=== PATIENT | female | born 1965 | race Caucasian/White ===

== ENCOUNTER 2016-10-15 11:46 | Emergency (ER) | payer MEDICARE, OTHER ==
--- NOTE | 2016-10-15 13:07 | EDDOCDS ---
Physician Documentation [facility] Name: Lilian Jones Age: 51 yrs Sex: Female : 1965 Arrival Date: 10/15/2016 Time: 11:46 Bed TR7 Private MD: Steven Mtz MD Disposition: 10/15/16 13:01 Discharged to Home/Self Care. Impression: Dental caries, Cellulitis and abscess of mouth. - Condition is Stable. - Discharge Instructions: Dental Abscess, Dental Pain. - Prescriptions for Amoxicillin 500 mg Oral Capsule - take 1 capsule by ORAL route every 8 hours for 10 days; 28 tablet. Diclofenac Sodium 75 mg Oral Tablet, Delayed Release (E.C.) - take 1 tablet by ORAL route 2 times per day; 30 tablet. - Medication Reconciliation, Local Pharmacy Hours form. - Follow up: Your, Dentist; When: 2 - 3 days; Reason: Further diagnostic work-up, Recheck today's complaints, Continuance of care. - Problem is new. - Symptoms are unchanged. Historical: - Allergies: no known allergies; - Home Meds: 1. Amlodipine Oral Unknown once daily 2. hydrochlorothiazide 25 mg Oral tab 1 tab once daily 3. Glipizide Oral Unknown 2 times per day 4. venlafaxine 37.5 mg oral tab daily - PMHx: Anxiety; Diabetes - NIDDM: uncontrolled; Hypertension; Pseudo Tumor Cerebri; legally blind; - PSHx: Hysterectomy; shunt in back; - Social history: Smoking status: Patient states was never smoker of tobacco. No barriers to communication noted, The patient speaks fluent Pashto, Speaks appropriately for age. - Family history: Not pertinent. - : The pt / caregiver states he / she is not on anticoagulants. Home medication list is obtained from the patient. - Exposure Risk Screening:: None identified. 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 4 in. (162.56 cm) (R); Pain 7/10; 11:49 Body Mass Index 51.49 (136.08 kg, 162.56 cm) lr2 MDM: 12:51 Financial registration complete. lg 12:54 [facility] Payment Agreement was scanned into [employer] and attached to record. [email or web address] Signatures: Sissy Sierra, Reg Reg lg Julissa Jackson,RN RN kr3 Cb Thomas PA PA btw Negrita Blackman, Reg Reg ks16 The chart was reviewed and I authenticate all verbal orders and agree with the evaluation and treatment provided.Attachments: 12:54 [facility] Payment Agreement ks16 MTDD
--- NOTE | 2016-10-15 13:07 | EDDOCDS ---
Nurse's Notes [facility] Name: Lilian Jones Age: 51 yrs Sex: Female : 1965 Arrival Date: 10/15/2016 Time: 11:46 Bed TR7 Private MD: Steven Mtz MD Diagnosis: Dental caries;Cellulitis and abscess of mouth Presentation: 10/15 11:50 Presenting complaint: Patient states: swelling to right side of face and dental pain kr3 right back tooth since night. Presenting complaint: Patient states: took some left over Amoxicillin (875mg) times 2 doses 1 day ago. Adult Sepsis Screening: The patient does not have new or worsening altered mentation. Patient's respiratory rate is less than 22. Systolic blood pressure is greater than 100. Patient has a qSOFA score of 0- Negative Sepsis Screen. Suicide/Homicide risk assessment- the patient denies having any suicidal and/or homicidal ideations and does not present with any other emotional, behavioral or mental health complaints. Status: Patient is not a product manager financial services or dependent. Transition of care: patient was not received from another setting of care. 11:50 Acuity: MALVIN Level 4 kr3 11:50 Method Of Arrival: Walkin/Carried/Asstd kr3 Triage Assessment: 11:53 General: Appears in no apparent distress, comfortable, Behavior is cooperative. Pain: kr3 Location: right jaw Pain currently is 7 out of 10 on a pain scale. HIV screening NA for this visit Offered previously. EENT: Reports pain in mouth. Respiratory: Respiratory effort is even, unlabored. Derm: Skin is normal. 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 Amlodipine Oral Unknown once daily 2. hydrochlorothiazide 25 mg Oral tab 1 tab once daily 3. Glipizide Oral Unknown 2 times per day 4. venlafaxine 37.5 mg oral tab daily - PMHx: Anxiety; Diabetes - NIDDM: uncontrolled; Hypertension; Pseudo Tumor Cerebri; legally blind; - PSHx: Hysterectomy; shunt in back; - Social history: Smoking status: Patient states was never smoker of tobacco. No barriers to communication noted, The patient speaks fluent Cook Islander, Speaks appropriately for age. - Family history: Not pertinent. - : The pt / caregiver states he / she is not on anticoagulants. Home medication list is obtained from the patient. - Exposure Risk Screening:: None identified. Screenin:05 Screening information is obtained from the patient. Fall risk: No risks identified. kr3 Assistance ADL's: requires no assistance with activities of daily living. Abuse/DV Screen: The patient / caregiver reports he/she is: not in a situation that causes fear, pain or injury. Nutritional screening: No deficits noted. Advance Directives: Currently, there is no health care proxy. home support is adequate. Assessment: 13:05 General: Appears in no apparent distress, comfortable, Behavior is cooperative. kr3 Vital Signs: 11:49 BP 184 / 90; Pulse 86; Resp 16; Temp 97.8(T); Pulse Ox 96% on R/A; Weight 136.08 kg lr2 (R); Height 5 ft. 4 in. (162.56 cm) (R); Pain 7/10; 11:49 Body Mass Index 51.49 (136.08 kg, 162.56 cm) lr2 Vitals: 11:49 Log In Time: October 15, 2016 at 11:46. lr2 ED Course: 11:48 Patient visited by Mignon Saavedra. lr2 11:48 Steven Mtz is Private Physician. lr2 11:48 Patient moved to Waiting lr2 11:49 Patient moved to Pre RCE lr2 11:51 Triage Initiated kr3 12:43 Patient moved to Triage 2 srm 12:47 [facility]b Thomas [facility]. btw 12:47 Kanchan Brennan MD is Attending Physician. btw 12:48 Patient visited by Cb Thomas PA. btw 12:54 [facility] Payment Agreement was scanned into [employer] and attached to record. ks16 13:00 Your, Dentist is Referral Physician. btw 13:04 Patient moved to TR7 ct3 13:05 The patient / caregiver is instructed regarding the plan of care and ED course. Patient simon3 has correct armband on for positive identification. 13:05 No IV's were initiated during this patient's visit. No procedures done that require kr3 assistance. Order Results: There are currently no results for this order. Outcome: 13:01 Discharge ordered by Provider. btw 13:05 Discharge Assessment: patient administered narcotics - no. The following High Risk kr3 Discharge criteria are identified: None. Discharged to home ambulatory. Condition: stable. Discharge instructions given to patient, Instructed on discharge instructions, follow up and referral plans. medication usage, Demonstrated understanding of instructions, medications, Pt was receptive of discharge instructions/ teaching. Prescriptions given X 1. No special radiology studies were completed. Property sent home with patient. 13:06 Patient left the ED. kr3 Signatures: Fatuma Godwin, RN RN srm Julissa JacksonRN RN kr3 Cb Thomas PA PA btw Amanda Hagan, CABLE ASSEMBLER AND SWAGER CABLE ASSEMBLER AND SWAGER ct3 Negrita Blackman, Reg Reg ks16 Mignon Saavedra2 MTDD
--- NOTE | 2016-10-17 14:07 | EDDOCDS ---
Physician Documentation [facility] Name: Lilian Jones Age: 51 yrs Sex: Female : 1965 Arrival Date: 10/15/2016 Time: 11:46 Bed TR7 Private MD: Steven Mtz MD Disposition: 10/15/16 13:01 Discharged to Home/Self Care. Impression: Dental caries, Cellulitis and abscess of mouth. - Condition is Stable. - Discharge Instructions: Dental Abscess, Dental Pain. - Prescriptions for Amoxicillin 500 mg Oral Capsule - take 1 capsule by ORAL route every 8 hours for 10 days; 28 tablet. Diclofenac Sodium 75 mg Oral Tablet, Delayed Release (E.C.) - take 1 tablet by ORAL route 2 times per day; 30 tablet. - Medication Reconciliation, Local Pharmacy Hours form. - Follow up: Your, Dentist; When: 2 - 3 days; Reason: Further diagnostic work-up, Recheck today's complaints, Continuance of care. - Problem is new. - Symptoms are unchanged. Historical: - Allergies: no known allergies; - Home Meds: 1. Amlodipine Oral Unknown once daily 2. hydrochlorothiazide 25 mg Oral tab 1 tab once daily 3. Glipizide Oral Unknown 2 times per day 4. venlafaxine 37.5 mg oral tab daily - PMHx: Anxiety; Diabetes - NIDDM: uncontrolled; Hypertension; Pseudo Tumor Cerebri; legally blind; - PSHx: Hysterectomy; shunt in back; - Social history: Smoking status: Patient states was never smoker of tobacco. No barriers to communication noted, The patient speaks fluent Occitan, Speaks appropriately for age. - Family history: Not pertinent. - : The pt / caregiver states he / she is not on anticoagulants. Home medication list is obtained from the patient. - Exposure Risk Screening:: None identified. 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 4 in. (162.56 cm) (R); Pain 7/10; 11:49 Body Mass Index 51.49 (136.08 kg, 162.56 cm) lr2 MDM: 12:51 Financial registration complete. lg 12:54 [facility] Payment Agreement was scanned into [employer] and attached to record. ks16 14:36 T-Sheet-- Draft Copy was scanned into [employer] and attached to record. gb Signatures: Sara Fox, Reg Reg gb Sissy Sierra, Reg Reg lg Julissa Jackson,MARY JO RN kr3 Cb Thomas, LIANNA PA eveliaw Negrita Blackman, Reg Reg ks16 The chart was reviewed and I authenticate all verbal orders and agree with the evaluation and treatment provided.Attachments: 12:54 [facility] Payment Agreement ks16 14:36 T-Sheet-- Draft Copy gb Chart Complete MTDD
--- NOTE | 2016-10-17 14:07 | EDDOCDS ---
Physician Documentation [facility] Name: Lilian Jones Age: 51 yrs Sex: Female : 1965 Arrival Date: 10/15/2016 Time: 11:46 Bed TR7 Private MD: Steven Mtz MD Disposition: 10/15/16 13:01 Discharged to Home/Self Care. Impression: Dental caries, Cellulitis and abscess of mouth. - Condition is Stable. - Discharge Instructions: Dental Abscess, Dental Pain. - Prescriptions for Amoxicillin 500 mg Oral Capsule - take 1 capsule by ORAL route every 8 hours for 10 days; 28 tablet. Diclofenac Sodium 75 mg Oral Tablet, Delayed Release (E.C.) - take 1 tablet by ORAL route 2 times per day; 30 tablet. - Medication Reconciliation, Local Pharmacy Hours form. - Follow up: Your, Dentist; When: 2 - 3 days; Reason: Further diagnostic work-up, Recheck today's complaints, Continuance of care. - Problem is new. - Symptoms are unchanged. Historical: - Allergies: no known allergies; - Home Meds: 1. Amlodipine Oral Unknown once daily 2. hydrochlorothiazide 25 mg Oral tab 1 tab once daily 3. Glipizide Oral Unknown 2 times per day 4. venlafaxine 37.5 mg oral tab daily - PMHx: Anxiety; Diabetes - NIDDM: uncontrolled; Hypertension; Pseudo Tumor Cerebri; legally blind; - PSHx: Hysterectomy; shunt in back; - Social history: Smoking status: Patient states was never smoker of tobacco. No barriers to communication noted, The patient speaks fluent Icelandic, Speaks appropriately for age. - Family history: Not pertinent. - : The pt / caregiver states he / she is not on anticoagulants. Home medication list is obtained from the patient. - Exposure Risk Screening:: None identified. 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 4 in. (162.56 cm) (R); Pain 7/10; 11:49 Body Mass Index 51.49 (136.08 kg, 162.56 cm) lr2 MDM: 12:51 Financial registration complete. lg 12:54 [facility] Payment Agreement was scanned into [employer] and attached to record. ks16 14:36 T-Sheet-- Draft Copy was scanned into [employer] and attached to record. gb Signatures: Sara Fox, Reg Reg gb Sissy Sierra, Reg Reg lg Julissa Jackson,MARY JO RN kr3 Cb Thomas, LIANNA PA eveliaw Negrita Blackman, Reg Reg ks16 The chart was reviewed and I authenticate all verbal orders and agree with the evaluation and treatment provided.Attachments: 12:54 [facility] Payment Agreement ks16 14:36 T-Sheet-- Draft Copy gb Chart Complete MTDD
--- NOTE | 2016-10-17 14:07 | EDDOCDS ---
Nurse's Notes [facility] Name: Lilian Jones Age: 51 yrs Sex: Female : 1965 Arrival Date: 10/15/2016 Time: 11:46 Bed TR7 Private MD: Steven Mtz MD Diagnosis: Dental caries;Cellulitis and abscess of mouth Presentation: 10/15 11:50 Presenting complaint: Patient states: swelling to right side of face and dental pain kr3 right back tooth since night. Presenting complaint: Patient states: took some left over Amoxicillin (875mg) times 2 doses 1 day ago. Adult Sepsis Screening: The patient does not have new or worsening altered mentation. Patient's respiratory rate is less than 22. Systolic blood pressure is greater than 100. Patient has a qSOFA score of 0- Negative Sepsis Screen. Suicide/Homicide risk assessment- the patient denies having any suicidal and/or homicidal ideations and does not present with any other emotional, behavioral or mental health complaints. Status: Patient is not a account services representative or dependent. Transition of care: patient was not received from another setting of care. 11:50 Acuity: MALVIN Level 4 kr3 11:50 Method Of Arrival: Walkin/Carried/Asstd kr3 Triage Assessment: 11:53 General: Appears in no apparent distress, comfortable, Behavior is cooperative. Pain: kr3 Location: right jaw Pain currently is 7 out of 10 on a pain scale. HIV screening NA for this visit Offered previously. EENT: Reports pain in mouth. Respiratory: Respiratory effort is even, unlabored. Derm: Skin is normal. 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 Amlodipine Oral Unknown once daily 2. hydrochlorothiazide 25 mg Oral tab 1 tab once daily 3. Glipizide Oral Unknown 2 times per day 4. venlafaxine 37.5 mg oral tab daily - PMHx: Anxiety; Diabetes - NIDDM: uncontrolled; Hypertension; Pseudo Tumor Cerebri; legally blind; - PSHx: Hysterectomy; shunt in back; - Social history: Smoking status: Patient states was never smoker of tobacco. No barriers to communication noted, The patient speaks fluent [place] Helenian, Speaks appropriately for age. - Family history: Not pertinent. - : The pt / caregiver states he / she is not on anticoagulants. Home medication list is obtained from the patient. - Exposure Risk Screening:: None identified. Screenin:05 Screening information is obtained from the patient. Fall risk: No risks identified. kr3 Assistance ADL's: requires no assistance with activities of daily living. Abuse/DV Screen: The patient / caregiver reports he/she is: not in a situation that causes fear, pain or injury. Nutritional screening: No deficits noted. Advance Directives: Currently, there is no health care proxy. home support is adequate. Assessment: 13:05 General: Appears in no apparent distress, comfortable, Behavior is cooperative. kr3 Vital Signs: 11:49 BP 184 / 90; Pulse 86; Resp 16; Temp 97.8(T); Pulse Ox 96% on R/A; Weight 136.08 kg lr2 (R); Height 5 ft. 4 in. (162.56 cm) (R); Pain 7/10; 11:49 Body Mass Index 51.49 (136.08 kg, 162.56 cm) lr2 Vitals: 11:49 Log In Time: October 15, 2016 at 11:46. lr2 ED Course: 11:48 Patient visited by Mignon Saavedra. lr2 11:48 Steven Mtz is Private Physician. lr2 11:48 Patient moved to Waiting lr2 11:49 Patient moved to Pre RCE lr2 11:51 Triage Initiated kr3 12:43 Patient moved to Triage 2 srm 12:47 [facility] btw 12:47 Kanchan Brennan MD is Attending Physician. btw 12:48 Patient visited by Cb Thomas PA. btw 12:54 [facility] BEDS AT THE [facility] Payment Agreement was scanned into [employer] and attached to record. ks16 13:00 Your, Dentist is Referral Physician. btw 13:04 Patient moved to TR7 ct3 13:05 The patient / caregiver is instructed regarding the plan of care and ED course. Patient lisa has correct armband on for positive identification. 13:05 No IV's were initiated during this patient's visit. No procedures done that require kr3 assistance. 14:36 T-Sheet-- Draft Copy was scanned into [employer] and attached to record. gb Order Results: There are currently no results for this order. Outcome: 13:01 Discharge ordered by Provider. btw 13:05 Discharge Assessment: patient administered narcotics - no. The following High Risk kr3 Discharge criteria are identified: None. Discharged to home ambulatory. Condition: stable. Discharge instructions given to patient, Instructed on discharge instructions, follow up and referral plans. medication usage, Demonstrated understanding of instructions, medications, Pt was receptive of discharge instructions/ teaching. Prescriptions given X 1. No special radiology studies were completed. Property sent home with patient. 13:06 Patient left the ED. kr3 Signatures: Fatuma Godwin, RN RN [facility] Sara Fox, Reg Reg gb Julissa JacksonRN RN kr3 Cb Thomas, LIANNA PA btw Amanda Hagan, LEAD ACCOUNTANT LEAD ACCOUNTANT ct3 Negrita Blackman, Reg Reg ks16 Mignon Saavedra lr2 Chart Complete MTDD
== END 2016-10-15 13:06 | disposition home or self-care (01) ==
LOC: M ED 11:46
DX: K02.9 Dental caries, unspecified (principal); K05.5 Other periodontal diseases; E11.9 Type 2 diabetes mellitus without complications; I10 Essential (primary) hypertension; F41.9 Anxiety disorder, unspecified; G93.2 Benign intracranial hypertension; H54.8 Legal blindness, as defined in USA; Z79.899 Other long term (current) drug therapy

== ENCOUNTER → 2016-11-05 | Outpatient (REF) | payer MEDICARE | LOC: M LAB REF 18:11 | PROVIDERS: ATTEND Physician Assistant | DX: R30.0 Dysuria (principal) ==

== ENCOUNTER → 2017-02-05 | Outpatient (CLI) | payer MEDICARE ==
[2017-02-05 18:12] LABS: BASO % 0.6 % (0.0-1.0); EOS # 0.2 K/mm3 (0.0-0.50); LARGE UNSTAINED CELL # 0.1 K/mm3 (0.0-0.4); LARGE UNSTAINED CELL % 1.2 % (0.0-4.0); LYMPH # 2.6 K/mm3 (1.5-4.5); LYMPH % 34.9 % (24.0-44.0); MEAN CORPUSCULAR HEMOGLOBIN 29.9 pg (27.0-33.0); MEAN CORPUSCULAR HGB CONC 33.8 g/dl (32.0-36.5); MEAN CORPUSCULAR VOLUME 88.4 fl (80.0-96.0); MONO # 0.3 K/mm3 (0.0-0.8); MONO % 3.7 % (0.0-5.0); NEUTROPHILS % 56.6 % (36.0-66.0); PLATELET COUNT, AUTOMATED 235 k/mm3 (150-450); RED CELL DISTRIBUTION WIDTH 13.6 % (11.5-14.5); WHITE BLOOD COUNT 7.1 K/mm3 (4.0-10.0)
[2017-02-05 19:37] LABS: ALBUMIN 3.6 GM/DL (3.2-5.2); ALBUMIN/GLOBULIN RATIO 0.97 (1.00-1.93); ALKALINE PHOSPHATASE 110 U/L (45-117); ALT/SGPT 28 U/L (12-78); ANION GAP 10 MEQ/L (8-16); AST/SGOT 23 U/L (15-37); BILIRUBIN,TOTAL 0.7 MG/DL (0.2-1.0); BLOOD UREA NITROGEN 10 MG/DL (7-18); CALCIUM LEVEL 9.6 MG/DL (8.5-10.1); CARBON DIOXIDE LEVEL 29 MEQ/L (21-32); CHLORIDE LEVEL 101 MEQ/L (98-107); CHOLESTEROL LEVEL 169 MG/DL (<200); CREATININE FOR GFR 0.87 MG/DL (0.55-1.02); GLOMERULAR FILTRATION RATE > 60.0 (>51); GLUCOSE, FASTING 232 MG/DL (70-105); SODIUM LEVEL 140 MEQ/L (136-145); TOTAL PROTEIN 7.3 GM/DL (6.4-8.2); TRIGLYCERIDES LEVEL 224 MG/DL (<150)
== END ==
LOC: M WUC 09:45
PROVIDERS: ATTEND Nurse Practitioner Family
DX: I10 Essential (primary) hypertension (principal); E11.9 Type 2 diabetes mellitus without complications; E66.01 Morbid (severe) obesity due to excess calories

== ENCOUNTER → 2017-07-21 | Outpatient (CLI) | payer OTHER, MEDICARE ==
[2017-07-21 13:10] LABS: BASO % 0.5 % (0.0-1.0); EOS # 0.5 10^3/uL (0.0-0.50); EOS % 6.2 % (0.0-3.0); IMMATURE GRANULOCYTE % 0.2 % (0-0); LYMPH # 3.4 10^3/uL (1.5-4.5); LYMPH % 38.7 % (24.0-44.0); MEAN CORPUSCULAR HEMOGLOBIN 28.3 pg (27.0-33.0); MEAN CORPUSCULAR HGB CONC 32.2 g/dl (32.0-36.5); MEAN CORPUSCULAR VOLUME 87.9 fl (80.0-96.0); MONO # 0.5 10^3/uL (0.0-0.8); MONO % 5.3 % (0.0-5.0); NEUTROPHILS # 4.2 10^3/uL (1.8-7.7); NEUTROPHILS % 49.1 % (36.0-66.0); PLATELET COUNT, AUTOMATED 273 10^3/uL (150-450); RED CELL DISTRIBUTION WIDTH 13.9 % (11.5-14.5); WHITE BLOOD COUNT 8.7 10^3/uL (4.0-10.0)
[2017-07-21 13:12] LABS: ALBUMIN 3.7 GM/DL (3.2-5.2); ALKALINE PHOSPHATASE 82 U/L (45-117); ALT/SGPT 24 U/L (12-78); ANION GAP 6 MEQ/L (8-16); AST/SGOT 16 U/L (7-37); BILIRUBIN,TOTAL 0.5 MG/DL (0.2-1.0); BLOOD UREA NITROGEN 13 MG/DL (7-18); CALCIUM LEVEL 9.6 MG/DL (8.5-10.1); CARBON DIOXIDE LEVEL 29 MEQ/L (21-32); CHLORIDE LEVEL 107 MEQ/L (98-107); CHOLESTEROL LEVEL 172 MG/DL (<200); CREATININE FOR GFR 0.89 MG/DL (0.55-1.02); GLOMERULAR FILTRATION RATE > 60.0 (>51); GLUCOSE, FASTING 153 MG/DL (70-105); POTASSIUM SERUM 3.7 MEQ/L (3.5-5.1); SODIUM LEVEL 142 MEQ/L (136-145); TOTAL PROTEIN 7.4 GM/DL (6.4-8.2); TRIGLYCERIDES LEVEL 187 MG/DL (<150)
== END ==
LOC: M WUC 08:33
PROVIDERS: ATTEND Nurse Practitioner Family
DX: E66.01 Morbid (severe) obesity due to excess calories (principal); E11.9 Type 2 diabetes mellitus without complications; I10 Essential (primary) hypertension

== ENCOUNTER → 2017-08-01 | Outpatient (REF) | payer MEDICARE | LOC: M SFHCCLAY 13:57 | PROVIDERS: ATTEND Nurse Practitioner Family | DX: A63.0 Anogenital (venereal) warts (principal); D23.5 Other benign neoplasm of skin of trunk | CPT/HCPCS: 11100; 88305; G0463 ==

== ENCOUNTER → 2017-10-02 | Outpatient (REF) | payer MEDICARE | LOC: M LAB REF 17:02 | DX: J03.90 Acute tonsillitis, unspecified (principal) | CPT/HCPCS: 87081 ==

== ENCOUNTER → 2017-11-17 | Outpatient (CLI) | payer MEDICARE ==
[2017-11-17 13:32] LABS: MALB URINE SIEMENS 94.2 MG/L; MAU/CREAT RATIO 36.7 MCG/MG (0.0-30.0)
[2017-11-17 13:52] LABS: ALBUMIN 3.9 GM/DL (3.2-5.2); ALKALINE PHOSPHATASE 102 U/L (45-117); ALT/SGPT 27 U/L (12-78); ANION GAP 11 MEQ/L (8-16); AST/SGOT 22 U/L (7-37); BILIRUBIN,TOTAL 0.5 MG/DL (0.2-1.0); BLOOD UREA NITROGEN 13 MG/DL (7-18); CALCIUM LEVEL 9.8 MG/DL (8.5-10.1); CARBON DIOXIDE LEVEL 27 MEQ/L (21-32); CHLORIDE LEVEL 103 MEQ/L (98-107); CHOLESTEROL LEVEL 201 MG/DL (<200); CHOLESTEROL RISK RATIO 4.785 (<5); GLOMERULAR FILTRATION RATE > 60.0 (>51); GLUCOSE, FASTING 140 MG/DL (70-100); HDL CHOLESTEROL 42 MG/DL (>40); LDL CHOLESTEROL 107.8 MG/DL (<100); NON-HDL-C 159 MG/DL; POTASSIUM SERUM 3.8 MEQ/L (3.5-5.1); SODIUM LEVEL 141 MEQ/L (136-145); TOTAL PROTEIN 7.8 GM/DL (6.4-8.2); TRIGLYCERIDES LEVEL 256 MG/DL (<150)
[2017-11-17 14:07] LABS: ESTIMATED AVERAGE GLUCOSE 197 MG/DL (60-110); HEMOGLOBIN A1c 8.5 %
== END ==
LOC: M WUC 09:37
DX: E11.65 Type 2 diabetes mellitus with hyperglycemia (principal); I10 Essential (primary) hypertension; E66.01 Morbid (severe) obesity due to excess calories
CPT/HCPCS: 84443

== ENCOUNTER → 2017-11-20 | Outpatient (CLI) | payer MEDICARE ==
[~2017-11-20] MED LIST: ISOVUE-370 76% 100ML VIAL (Q9967) As Ordered
== END ==
LOC: M RAD 15:37
DX: R91.1 Solitary pulmonary nodule (principal)
CPT/HCPCS: Q9967

== ENCOUNTER → 2018-01-30 | Outpatient (REF) | payer MEDICARE | LOC: M SFHCCLAY 15:40 | DX: R35.0 Frequency of micturition (principal); Z53.8 Procedure and treatment not carried out for other reasons ==

== ENCOUNTER → 2018-02-14 | Outpatient (REF) | payer MEDICARE | LOC: M SFHCLERA 18:49 | DX: R53.81 Other malaise (principal) ==

== ENCOUNTER → 2018-06-13 | Outpatient (REF) | payer MEDICARE | LOC: M SFHCCLAY 15:39 | DX: E11.65 Type 2 diabetes mellitus with hyperglycemia (principal); I10 Essential (primary) hypertension; H54.8 Legal blindness, as defined in USA; E66.01 Morbid (severe) obesity due to excess calories; R91.1 Solitary pulmonary nodule; Z53.8 Procedure and treatment not carried out for other reasons ==

== ENCOUNTER → 2018-08-08 | Outpatient (REF) | payer MEDICARE | LOC: M SFHCCLAY 14:18 | DX: I10 Essential (primary) hypertension (principal); E11.65 Type 2 diabetes mellitus with hyperglycemia; H54.8 Legal blindness, as defined in USA; E66.01 Morbid (severe) obesity due to excess calories; R91.1 Solitary pulmonary nodule; Z53.8 Procedure and treatment not carried out for other reasons ==

== ENCOUNTER → 2018-12-27 | Outpatient (REF) | payer MEDICARE ==
[2018-12-27 12:58] LABS: HEMOGLOBIN A1c 10.5 %
[2018-12-27 12:59] LABS: ALBUMIN 3.8 GM/DL (3.2-5.2); ALT/SGPT 30 U/L (12-78); BILIRUBIN,TOTAL 0.7 MG/DL (0.2-1.0); BLOOD UREA NITROGEN 13 MG/DL (7-18); CALCIUM LEVEL 9.5 MG/DL (8.5-10.1); CARBON DIOXIDE LEVEL 30 MEQ/L (21-32); CHLORIDE LEVEL 105 MEQ/L (98-107); CHOLESTEROL LEVEL 172 MG/DL (<200); CHOLESTEROL RISK RATIO 3.739 (<5); CREATININE FOR GFR 0.84 MG/DL (0.55-1.30); GLOMERULAR FILTRATION RATE > 60.0 (>51); GLUCOSE, FASTING 224 MG/DL (70-100); HDL CHOLESTEROL 46 MG/DL (>40); LDL CHOLESTEROL 85 MG/DL (<100); NON-HDL-C 126 MG/DL; POTASSIUM SERUM 3.3 MEQ/L (3.5-5.1); SODIUM LEVEL 140 MEQ/L (136-145); TOTAL PROTEIN 7.1 GM/DL (6.4-8.2); TRIGLYCERIDES LEVEL 206 MG/DL (<150)
== END ==
LOC: M SFHCCLAY 08:20
PROVIDERS: ATTEND Nurse Practitioner Family
DX: E11.9 Type 2 diabetes mellitus without complications (principal); I10 Essential (primary) hypertension

== ENCOUNTER 2019-06-24 11:23 | Day surgery (SDC) | payer OTHER ==
[~2019-06-24] VITALS: Ht 162.6 cm; Wt 130.1 kg
[~2019-06-24 11:23] MED LIST changes: +AMLO10TA PO; +ATOR1TAB19 PO; +BETI1SOL OU; +BRIM0.2S13 OU; +CETI10TA PO; +CETI5SOL3 PO; +CHLO25TA PO; +CVS400LI PO; +D 202000 PO; +ECOT81TA5 PO; -ISOVUE-370 76% 100ML VIAL (Q9967) As Ordered; +LANTINJ4 SC; +LIDOCAINE 2% INJ 100 MG/5 ML SDV (FOR ANES.) As Ordered ONE; +LISI-538 PO; +NS 1,000 ML IV ONE; +PROPOFOL 200 MG/20 ML VIAL As Ordered ONE; +XALA0.007 OU
--- NOTE | 2019-06-24 13:35 | ROOR ---
Patient Name: Lilian Jones Procedure Date: 06/24/2019 1:12 PM Date of : 1965 Age: 54 Room: [facility] Gender: Female Note Status: Finalized Procedure: Total Colonoscopy to Cecum Indications: Screening in patient at increased risk: Colorectal cancer in mother 60 or older Providers: Madhav Lu MD Referring MD: Fina Mosher NP Requesting Provider: Medicines: Monitored Anesthesia Care Complications: No immediate complications. Procedure: Pre-Anesthesia Assessment: - The heart rate, respiratory rate, oxygen saturations, blood pressure, adequacy of pulmonary ventilation, and response to care were monitored throughout the procedure. The Colonoscope was introduced through the anus and advanced to the cecum, identified by appendiceal orifice and ileocecal valve. The colonoscopy was performed without difficulty. The patient tolerated the procedure well. The quality of the bowel preparation was good. Findings: The perianal and digital rectal examinations were normal. Non-bleeding internal hemorrhoids were found during retroflexion. The hemorrhoids were small and Grade I (internal hemorrhoids that do not prolapse). Multiple small and large-mouthed diverticula were found in the recto-sigmoid colon, sigmoid colon and descending colon. The exam was otherwise without abnormality on direct and retroflexion views. Impression: - Non-bleeding internal hemorrhoids. - Diverticulosis in the recto-sigmoid colon, in the sigmoid colon and in the descending colon. - The examination was otherwise normal on direct and retroflexion views. - No specimens collected. - The exam was otherwise normal to the cecum. Recommendation: - Patient has a contact number available for emergencies. The signs and symptoms of potential delayed complications were discussed with the patient. Return to normal activities tomorrow. Written discharge instructions were provided to the patient. - High fiber diet. - Discharge patient to home. - Continue present medications. - Repeat colonoscopy in 7 years for screening purposes. - Return to referring physician. - The findings and recommendations were discussed with the patient's family. Madhav Lu MD Madhav Lu MD 06/24/2019 1:35:26 PM Electronically signed by Madhav Lu MD Number of Addenda: 0 Note Initiated On: 06/24/2019 1:12 PM Estimated Blood Loss: Estimated blood loss: none.
[2019-06-24 14:06] VITALS: BP 167/97
== END 2019-06-24 14:08 | disposition home or self-care (01) ==
LOC: M OPP 11:23
PROVIDERS: ATTEND Internal Medicine Gastroenterology
DX: Z12.11 Encounter for screening for malignant neoplasm of colon (principal); Z80.0 Family history of malignant neoplasm of digestive organs; K64.0 First degree hemorrhoids; K57.30 Diverticulosis of large intestine without perforation or abscess without bleeding; Z79.4 Long term (current) use of insulin; Z79.82 Long term (current) use of aspirin; Z79.899 Other long term (current) drug therapy

== ENCOUNTER 2021-12-21 12:40 | Emergency (ER) | payer OTHER ==
[~2021-12-21] VITALS: Ht 162.6 cm; Wt 127.3 kg
[~2021-12-21 12:40] MED LIST changes: -LIDOCAINE 2% INJ 100 MG/5 ML SDV (FOR ANES.) As Ordered ONE; -LISI-538 PO; +LISI20TA33 PO; -NS 1,000 ML IV ONE; -PROPOFOL 200 MG/20 ML VIAL As Ordered ONE
[2021-12-21 12:41] VITALS: BP 164/85
[2021-12-21] MEDS ORDERED: SEMA1PEN2 SQ (12:54)
[2021-12-21] MEDS ORDERED: NAPR-837 PO (13:58)
[2021-12-21] MEDS ORDERED: METH-1164 PO (13:58)
== END 2021-12-21 14:25 | disposition home or self-care (01) ==
LOC: M ED 12:40
DX: S29.012A Strain of muscle and tendon of back wall of thorax, initial encounter (principal); X58.XXXA Exposure to other specified factors, initial encounter; Y92.89 Other specified places as the place of occurrence of the external cause; I10 Essential (primary) hypertension; Z91.018 Allergy to other foods; Z79.899 Other long term (current) drug therapy; Z79.82 Long term (current) use of aspirin; Z79.4 Long term (current) use of insulin

== ENCOUNTER → 2021-12-28 | Outpatient (CLI) | payer OTHER ==
[~2021-12-28] MED LIST changes: +METH-1164 PO; +NAPR-837 PO; +SEMA1PEN2 SQ
== END ==
LOC: M WHC 10-20 12:55
PROVIDERS: ATTEND Nurse Practitioner Primary Care
DX: Z12.31 Encounter for screening mammogram for malignant neoplasm of breast (principal); Z78.0 Asymptomatic menopausal state

== ENCOUNTER → 2022-09-05 | Outpatient (CLI) | payer OTHER | LOC: M SOG 08:01 | PROVIDERS: ATTEND Physician Assistant | DX: M19.041 Primary osteoarthritis, right hand (principal); M19.042 Primary osteoarthritis, left hand ==

== ENCOUNTER → 2023-01-16 | Outpatient (CLI) | payer OTHER ==
[~2023-01-16] MED LIST changes: -BETI1SOL OU; +TIMO5DRO5 OU
== END ==
LOC: M SOG 10:22
PROVIDERS: ATTEND Physician Assistant
DX: M25.531 Pain in right wrist (principal); M25.532 Pain in left wrist

== ENCOUNTER → 2023-02-17 | Outpatient (CLI) | payer OTHER | LOC: M WHC 08:47 | PROVIDERS: ATTEND Family Medicine | DX: Z12.31 Encounter for screening mammogram for malignant neoplasm of breast (principal) ==

== ENCOUNTER → 2023-03-22 | Outpatient (CLI) | payer OTHER | LOC: M RAD 13:25 | DX: M54.16 Radiculopathy, lumbar region (principal) ==

== ENCOUNTER 2024-01-24 09:21 | Day surgery (SDC) | payer OTHER ==
[~2024-01-24] VITALS: Ht 162.6 cm; Wt 117.1 kg
[~2024-01-24 09:21] MED LIST changes: +ATOR80TA59 PO; +LISI40TA4 PO; +SPIR-10 PO; +VITA100016 PO; +fentaNYL 100 MCG/2 ML INJECTION As Ordered ONE
[2024-01-24] MEDS: NS 1,000 ML IV ONE (09:40)
[2024-01-24] MEDS ORDERED: propofoL 200 MG/20 ML VIAL As Ordered ONE (10:26)
[2024-01-24] MEDS ORDERED: GLYCOPYRROLATE INJ 0.2 MG/ML 2 ML VIAL As Ordered ONE (10:38)
[2024-01-24] MEDS ORDERED: ePHEDrine SULFATE 25 MG/5 ML(5MG/ML) SYRINGE As Ordered ONE (10:40)
[2024-01-24 10:46] VITALS: TEMP 99.3
[2024-01-24 11:05] VITALS: BP 134/75; O2SAT 94
== END 2024-01-24 11:11 | disposition home or self-care (01) ==
LOC: M OPP 09:21
PROVIDERS: ATTEND Internal Medicine Gastroenterology
DX: Z12.11 Encounter for screening for malignant neoplasm of colon (principal); Z80.0 Family history of malignant neoplasm of digestive organs; D12.6 Benign neoplasm of colon, unspecified; K64.0 First degree hemorrhoids; K57.30 Diverticulosis of large intestine without perforation or abscess without bleeding; K31.A19 Gastric intestinal metaplasia without dysplasia, unspecified site; R12 Heartburn; I10 Essential (primary) hypertension; E10.9 Type 1 diabetes mellitus without complications; Z79.2 Long term (current) use of antibiotics; Z79.1 Long term (current) use of non-steroidal anti-inflammatories (NSAID); Z79.4 Long term (current) use of insulin; Z79.82 Long term (current) use of aspirin; Z79.899 Other long term (current) drug therapy
CPT/HCPCS: 43239; 45380; 88305; J3010

== ENCOUNTER → 2024-05-20 | Outpatient (CLI) | payer OTHER ==
[~2024-05-20] MED LIST changes: -fentaNYL 100 MCG/2 ML INJECTION As Ordered ONE
== END ==
LOC: M WHC 07:49
PROVIDERS: ATTEND Family Medicine
DX: R92.313 Mammographic fatty tissue density, bilateral breasts (principal)

== ENCOUNTER → 2024-06-28 | Outpatient (CLI) | payer OTHER | LOC: M RAD 14:21 | PROVIDERS: ATTEND Internal Medicine Nephrology | DX: N18.31 Chronic kidney disease, stage 3a (principal) ==

== ENCOUNTER → 2025-03-26 | Outpatient (CLI) | payer OTHER ==
[~2025-03-26] MED LIST changes: +AMLO-751 PO; -AMLO10TA PO; +AMOX875T2 PO; +FIOR1CAP PO; +LISI40TA10 PO; -LISI40TA4 PO; +PRED10TA2 PO; +TOPA1TAB PO
== END ==
LOC: M RAD 10:43
PROVIDERS: ATTEND Nurse Practitioner Family
DX: Z12.2 Encounter for screening for malignant neoplasm of respiratory organs (principal); Z87.891 Personal history of nicotine dependence; I25.10 Atherosclerotic heart disease of native coronary artery without angina pectoris

== ENCOUNTER → 2025-06-16 | Outpatient (CLI) | payer OTHER | LOC: M WHC 08:55 | PROVIDERS: ATTEND Nurse Practitioner Family | DX: Z12.31 Encounter for screening mammogram for malignant neoplasm of breast (principal) ==